=== PATIENT | female | born 1960 | race Caucasian/White ===

== ENCOUNTER 2019-01-11 12:52 | Emergency (ER) | payer SELFPAY ==
[~2019-01-11] VITALS: Ht 157.5 cm; Wt 56.8 kg
[~2019-01-11 12:52] MED LIST: CIPROFLOXACN500 MG PO; DOXYCYCL HYC100 MG OR; FLEXERIL PO; IMODIUM2 MG PO; MOTRIN200 MG PO; ZOFRAN4 MG/TAB PO
[2019-01-11 13:53] LABS: HEMATOCRIT 36.2 % (37.0-47.0); IMMATURE GRANULOCYTES 0.3 % (0.0-5.0); MEAN CELL VOLUME 83.8 fL CALC (80.0-100.0); MEAN CORPUSCULAR HGB 27.8 pG CALC (26.0-32.0); MEAN CORPUSCULAR HGB CONC 33.1 g/L CALC (32.0-36.0); NEUT# 4.34 thou/uL (2.00-7.15); RED BLOOD COUNT 4.32 mill/uL (4.20-5.60); RED CELL DISTRI WIDTH 13.3 % (11.5-15.5)
[2019-01-11 14:07] LABS: URINE BILIRUBIN - DIPSTICK NEGATIVE (NEGATIVE); URINE BLOOD DIPSTICK NEGATIVE (NEGATIVE); URINE COLOR YELLOW; URINE GLUCOSE - DIPSTICK NEGATIVE (NEGATIVE); URINE KETONE NEGATIVE (NEGATIVE); URINE LEUK ESTERASE TRACE (NEGATIVE); URINE NITRITE - DIPSTICK NEGATIVE (Negative); URINE PROTEIN - DIPSTICK NEGATIVE (NEG-TRACE); URINE SPECIFIC GRAVITY <=1.005; URINE UROBILINOGEN - DIPSTICK 0.2 E.U./dL (0.2)
[2019-01-11 14:08] LABS: ALBUMIN 4.5 g/dL (3.2-5.0); ALKALINE PHOSPHATASE 89 u/l (38-126); ANION GAP 16 (6-22 (CALC)); BILIRUBIN, TOTAL 0.4 mg/dL (0.0-1.4); BUN 10 mg/dL (7-17); BUN/CREATININE RATIO 15 (12-20 (CALC)); CARBON DIOXIDE 19 mmol/l (22-30); CHLORIDE 107 mmol/l (95-108); CREATININE 0.7 mg/dL (0.5-1.0); GFR > 60 ML/MIN (>=60 (CALC)); GFR FOR AFR.AMER. > 60 ML/MIN (>=60 (CALC)); LIPASE 119 u/l (23-300); POTASSIUM 3.7 mmol/l (3.5-5.1); SGOT/AST 31 u/l (14-36); SODIUM 138 mmol/l (137-146); TOTAL PROTEIN 7.8 g/dL (6.3-8.2)
[2019-01-11 14:20] LABS: BARBITURATES NEGATIVE (NEGATIVE); COCAINE NEGATIVE (NEGATIVE); METHADONE NEGATIVE (NEGATIVE); OXCYCODONE NEGATIVE (NEGATIVE); TETRAHYDROCANNABIONOL NEGATIVE (NEGATIVE); TRICYLIC ANTIDEPRESSANTS NEGATIVE (NEGATIVE)
[2019-01-11 16:58] VITALS: BP 148/99
== END 2019-01-11 17:01 | disposition short-term general hospital (02) | DRG 55 ==
LOC: ED 12:52
PROVIDERS: Emergency Medicine
DX: C79.31 Secondary malignant neoplasm of brain (principal); R91.8 Other nonspecific abnormal finding of lung field; R07.9 Chest pain, unspecified; R20.0 Anesthesia of skin; F17.200 Nicotine dependence, unspecified, uncomplicated
CPT/HCPCS: Q9967

== ENCOUNTER 2019-01-28 15:06 | Emergency (ER) | payer SELFPAY ==
[~2019-01-28] VITALS: Ht 157.5 cm; Wt 54.5 kg
[2019-01-28] MEDS ORDERED: ULTRAM50 MG PO (15:29)
[2019-01-28 15:47] LABS: HEMATOCRIT 37.5 % (37.0-47.0); HEMOGLOBIN 12.7 g/dl (12.0-16.0); IMMATURE GRANULOCYTES 2.5 % (0.0-5.0); MEAN CELL VOLUME 82.6 fL CALC (80.0-100.0); MEAN CORPUSCULAR HGB CONC 33.9 g/L CALC (32.0-36.0); NEUT# 14.78 thou/uL (2.00-7.15); RED BLOOD COUNT 4.54 mill/uL (4.20-5.60); RED CELL DISTRI WIDTH 15.4 % (11.5-15.5)
[2019-01-28 16:05] LABS: ALBUMIN 4.3 g/dL (3.2-5.0); ALKALINE PHOSPHATASE 88 u/l (38-126); BUN 18 mg/dL (7-17); BUN/CREATININE RATIO 27 (12-20 (CALC)); CARBON DIOXIDE 22 mmol/l (22-30); CREATININE 0.7 mg/dL (0.5-1.0); ETHYL ALCOHOL 55 mg/dl (0-30); GFR > 60 ML/MIN (>=60 (CALC)); GFR FOR AFR.AMER. > 60 ML/MIN (>=60 (CALC)); SGOT/AST 40 u/l (14-36); TOTAL PROTEIN 6.9 g/dL (6.3-8.2)
[2019-01-28 16:06] LABS: URINE BILIRUBIN - DIPSTICK NEGATIVE (NEGATIVE); URINE BLOOD DIPSTICK TRACE-INTACT (NEGATIVE); URINE COLOR YELLOW; URINE GLUCOSE - DIPSTICK NEGATIVE (NEGATIVE); URINE KETONE NEGATIVE (NEGATIVE); URINE LEUK ESTERASE TRACE (NEGATIVE); URINE NITRITE - DIPSTICK NEGATIVE (Negative); URINE PROTEIN - DIPSTICK NEGATIVE (NEG-TRACE); URINE SPECIFIC GRAVITY <=1.005; URINE UROBILINOGEN - DIPSTICK 0.2 E.U./dL (0.2)
[2019-01-28 16:09] LABS: BARBITURATES NEGATIVE (NEGATIVE); COCAINE NEGATIVE (NEGATIVE); METHADONE NEGATIVE (NEGATIVE); OXCYCODONE NEGATIVE (NEGATIVE); TETRAHYDROCANNABIONOL NEGATIVE (NEGATIVE); TRICYLIC ANTIDEPRESSANTS NEGATIVE (NEGATIVE)
[2019-01-28 16:14] LABS: ANION GAP 21 (6-22 (CALC)); BILIRUBIN, TOTAL 0.6 mg/dL (0.0-1.4); CHLORIDE 92 mmol/l (95-108); SODIUM 131 mmol/l (137-146)
[2019-01-28 16:17] LABS: MYOGLOBIN 120 ng/mL (0 - 62)
[2019-01-28 17:34] VITALS: BP 174/104
== END 2019-01-28 17:27 | disposition left against medical advice (07) | DRG 303 ==
LOC: ED 15:06
PROVIDERS: Emergency Medicine
DX: R93.89 Abnormal findings on diagnostic imaging of other specified body structures (principal); C34.90 Malignant neoplasm of unspecified part of unspecified bronchus or lung; C79.51 Secondary malignant neoplasm of bone; R51 Headache; R20.0 Anesthesia of skin; Z91.19 Patient's noncompliance with other medical treatment and regimen

== ENCOUNTER 2019-02-01 16:46 | Emergency (ER) | payer SELFPAY ==
[~2019-02-01] VITALS: Ht 157.5 cm; Wt 75.0 kg
[2019-02-01 16:46] VITALS: BP 144/99
[~2019-02-01 16:46] MED LIST changes: +ULTRAM50 MG PO
[2019-02-01 17:33] LABS: URINE BILIRUBIN - DIPSTICK NEGATIVE (NEGATIVE); URINE BLOOD DIPSTICK TRACE-INTACT (NEGATIVE); URINE COLOR YELLOW; URINE GLUCOSE - DIPSTICK NEGATIVE (NEGATIVE); URINE KETONE NEGATIVE (NEGATIVE); URINE NITRITE - DIPSTICK NEGATIVE (Negative); URINE PROTEIN - DIPSTICK NEGATIVE (NEG-TRACE); URINE SPECIFIC GRAVITY <=1.005; URINE UROBILINOGEN - DIPSTICK 0.2 E.U./dL (0.2)
[2019-02-01 17:33] LABS: HEMATOCRIT 32.7 % (37.0-47.0); HEMOGLOBIN 11.3 g/dl (12.0-16.0); IMMATURE GRANULOCYTES 3.4 % (0.0-5.0); MEAN CELL VOLUME 82.2 fL CALC (80.0-100.0); MEAN CORPUSCULAR HGB 28.4 pG CALC (26.0-32.0); MEAN CORPUSCULAR HGB CONC 34.6 g/L CALC (32.0-36.0); NEUT# 12.33 thou/uL (2.00-7.15); RED BLOOD COUNT 3.98 mill/uL (4.20-5.60); RED CELL DISTRI WIDTH 15.2 % (11.5-15.5)
[2019-02-01 17:36] LABS: URINE LEUK ESTERASE MODERATE (NEGATIVE)
[2019-02-01 17:37] LABS: BARBITURATES NEGATIVE (NEGATIVE); COCAINE NEGATIVE (NEGATIVE); METHADONE NEGATIVE (NEGATIVE); OXCYCODONE NEGATIVE (NEGATIVE); TETRAHYDROCANNABIONOL NEGATIVE (NEGATIVE); TRICYLIC ANTIDEPRESSANTS NEGATIVE (NEGATIVE)
[2019-02-01 17:50] LABS: ALKALINE PHOSPHATASE 86 u/l (38-126); BILIRUBIN, TOTAL 0.7 mg/dL (0.0-1.4); BUN 13 mg/dL (7-17); BUN/CREATININE RATIO 22 (12-20 (CALC)); CARBON DIOXIDE 25 mmol/l (22-30); CHLORIDE 85 mmol/l (95-108); CREATININE 0.6 mg/dL (0.5-1.0); ETHYL ALCOHOL 101 mg/dl (0-30); GFR > 60 ML/MIN (>=60 (CALC)); GFR FOR AFR.AMER. > 60 ML/MIN (>=60 (CALC)); POTASSIUM 3.9 mmol/l (3.5-5.1); SGOT/AST 48 u/l (14-36); TOTAL PROTEIN 5.6 g/dL (6.3-8.2)
[2019-02-01 17:51] LABS: ALBUMIN 3.3 g/dL (3.2-5.0); ANION GAP 17 (6-22 (CALC)); SODIUM 123 mmol/l (137-146)
[2019-02-01 17:51] LABS: URINE BACTERIA MODERATE hpf; URINE RBC 0-2 RBC/hpf (0-5); URINE SQUAMOUS EPITHELIAL CELL FEW EPI/hpf (0-FEW)
== END 2019-02-01 19:33 | disposition short-term general hospital (02) | DRG 55 ==
LOC: ED 16:46
PROVIDERS: Emergency Medicine
DX: D49.6 Neoplasm of unspecified behavior of brain (principal); E87.1 Hypo-osmolality and hyponatremia; N39.0 Urinary tract infection, site not specified; C79.9 Secondary malignant neoplasm of unspecified site; T14.8XXA Other injury of unspecified body region, initial encounter; F17.200 Nicotine dependence, unspecified, uncomplicated; B96.20 Unspecified Escherichia coli [E. coli] as the cause of diseases classified elsewhere; S80.12XA Contusion of left lower leg, initial encounter; W19.XXXA Unspecified fall, initial encounter

== ENCOUNTER 2019-03-15 15:31 | Emergency (ER) | payer OTHER ==
[~2019-03-15] VITALS: Ht 157.5 cm; Wt 70.0 kg
[2019-03-15 16:13] LABS: HEMATOCRIT 37.9 % (37.0-47.0); HEMOGLOBIN 12.3 g/dl (12.0-16.0); IMMATURE GRANULOCYTES 0.3 % (0.0-5.0); MEAN CELL VOLUME 85.2 fL CALC (80.0-100.0); MEAN CORPUSCULAR HGB 27.6 pG CALC (26.0-32.0); MEAN CORPUSCULAR HGB CONC 32.5 g/L CALC (32.0-36.0); NEUT# 6.09 thou/uL (2.00-7.15); RED BLOOD COUNT 4.45 mill/uL (4.20-5.60); RED CELL DISTRI WIDTH 15.1 % (11.5-15.5)
[2019-03-15 16:29] LABS: BUN 6 mg/dL (7-17); BUN/CREATININE RATIO 8 (12-20 (CALC)); CARBON DIOXIDE 25 mmol/l (22-30); CREATININE 0.7 mg/dL (0.5-1.0); GFR > 60 ML/MIN (>=60 (CALC)); GFR FOR AFR.AMER. > 60 ML/MIN (>=60 (CALC)); POTASSIUM 3.8 mmol/l (3.5-5.1)
[2019-03-15 16:31] LABS: ANION GAP 16 (6-22 (CALC)); CHLORIDE 103 mmol/l (95-108); SODIUM 140 mmol/l (137-146)
[2019-03-15 17:43] VITALS: BP 135/89
== END 2019-03-15 18:56 | disposition home or self-care (01) ==
LOC: ED 15:31
PROVIDERS: Family Medicine
DX: Z04.3 Encounter for examination and observation following other accident (principal); R07.9 Chest pain, unspecified; G81.94 Hemiplegia, unspecified affecting left nondominant side; D49.6 Neoplasm of unspecified behavior of brain; F17.200 Nicotine dependence, unspecified, uncomplicated

== ENCOUNTER 2019-04-22 11:00 | Inpatient (IN) | payer OTHER ==
[~2019-04-22] VITALS: Ht 157.5 cm; Wt 61.0 kg
[2019-04-22] VITALS (8 sets, daily range): BP systolic 98–135; BP diastolic 60–92
[2019-04-22 11:54] LABS: HEMATOCRIT 38.4 % (37.0-47.0); HEMOGLOBIN 12.6 g/dl (12.0-16.0); MEAN CELL VOLUME 83.3 fL CALC (80.0-100.0); MEAN CORPUSCULAR HGB 27.3 pG CALC (26.0-32.0); MEAN CORPUSCULAR HGB CONC 32.8 g/L CALC (32.0-36.0); NEUT# 7.23 thou/uL (2.00-7.15); RED BLOOD COUNT 4.61 mill/uL (4.20-5.60)
[2019-04-22 13:09] LABS: ALBUMIN 3.1 g/dL (3.2-5.0); BILIRUBIN, TOTAL 0.7 mg/dL (0.0-1.4); BUN 16 mg/dL (7-17); BUN/CREATININE RATIO 14 (12-20 (CALC)); CARBON DIOXIDE 25 mmol/l (22-30); CHLORIDE 91 mmol/l (95-108); CREATININE 1.1 mg/dL (0.5-1.0); GFR 51 ML/MIN (>=60 (CALC)); GFR FOR AFR.AMER. > 60 ML/MIN (>=60 (CALC)); POTASSIUM 4.4 mmol/l (3.5-5.1); SGOT/AST 33 u/l (14-36); TOTAL PROTEIN 5.9 g/dL (6.3-8.2)
[2019-04-22 13:20] LABS: ANION GAP 16 (6-22 (CALC))
[2019-04-22 13:21] LABS: ALKALINE PHOSPHATASE 169 u/l (38-126); SODIUM 128 mmol/l (137-146)
[2019-04-22] MEDS ORDERED: MS CONTIN30 MG PO (14:24)
[2019-04-22] MEDS ORDERED: DECADRON2 MG PO (14:25)
[2019-04-22] MEDS ORDERED: GABAPENTIN100 MG PO (14:25)
[2019-04-22] MEDS ORDERED: OXYCODONE10 M1 PO (14:28)
[2019-04-22] MEDS ORDERED: NORVASC PO (14:28)
[2019-04-22] MEDS ORDERED: SENNA-TABS8.6 MG PO (14:28)
[2019-04-22] MEDS ORDERED: ZOFRAN4 MG/TAB PO (14:32)
[2019-04-22] MEDS ORDERED: ATIVAN1 MG PO (14:33)
[2019-04-22 15:12] LABS: URINE BILIRUBIN - DIPSTICK NEGATIVE (NEGATIVE); URINE BLOOD DIPSTICK LARGE (NEGATIVE); URINE COLOR YELLOW; URINE GLUCOSE - DIPSTICK NEGATIVE (NEGATIVE); URINE KETONE NEGATIVE (NEGATIVE); URINE LEUK ESTERASE TRACE (NEGATIVE); URINE PROTEIN - DIPSTICK NEGATIVE (NEG-TRACE); URINE UROBILINOGEN - DIPSTICK 0.2 E.U./dL (0.2)
[2019-04-22 15:20] LABS: URINE NITRITE - DIPSTICK POSITIVE (Negative)
[2019-04-22 15:35] LABS: URINE SQUAMOUS EPITHELIAL CELL FEW EPI/hpf (0-FEW)
[2019-04-23] VITALS (11 sets, daily range): BP systolic 110–150; BP diastolic 62–96
[2019-04-23 05:43] LABS: HEMATOCRIT 30.9 % (37.0-47.0); HEMOGLOBIN 10.2 g/dl (12.0-16.0); MEAN CELL VOLUME 82.6 fL CALC (80.0-100.0); MEAN CORPUSCULAR HGB 27.3 pG CALC (26.0-32.0); RED BLOOD COUNT 3.74 mill/uL (4.20-5.60); RED CELL DISTRI WIDTH 15.8 % (11.5-15.5)
[2019-04-23 06:03] LABS: ANION GAP 8 (6-22 (CALC)); BUN 14 mg/dL (7-17); BUN/CREATININE RATIO 25 (12-20 (CALC)); CARBON DIOXIDE 30 mmol/l (22-30); CHLORIDE 101 mmol/l (95-108); CREATININE 0.6 mg/dL (0.5-1.0); GFR > 60 ML/MIN (>=60 (CALC)); GFR FOR AFR.AMER. > 60 ML/MIN (>=60 (CALC)); POTASSIUM 3.8 mmol/l (3.5-5.1)
[2019-04-23 06:04] LABS: SODIUM 135 mmol/l (137-146)
[2019-04-23] MEDS ORDERED: MULTI VIT PO (16:36)
[2019-04-24] VITALS (12 sets, daily range): BP systolic 136–167; BP diastolic 89–105
[2019-04-25] VITALS (13 sets, daily range): BP systolic 127–159; BP diastolic 85–101
[2019-04-25 05:28] LABS: HEMATOCRIT 30.5 % (37.0-47.0); MEAN CELL VOLUME 82.4 fL CALC (80.0-100.0); MEAN CORPUSCULAR HGB CONC 32.8 g/L CALC (32.0-36.0); RED BLOOD COUNT 3.7 mill/uL (4.20-5.60); RED CELL DISTRI WIDTH 15.9 % (11.5-15.5)
[2019-04-25 05:38] LABS: ALKALINE PHOSPHATASE 145 u/l (38-126); ANION GAP 8 (6-22 (CALC)); BUN 11 mg/dL (7-17); BUN/CREATININE RATIO 24 (12-20 (CALC)); CARBON DIOXIDE 33 mmol/l (22-30); CHLORIDE 98 mmol/l (95-108); CREATININE 0.5 mg/dL (0.5-1.0); GFR > 60 ML/MIN (>=60 (CALC)); GFR FOR AFR.AMER. > 60 ML/MIN (>=60 (CALC)); POTASSIUM 3.4 mmol/l (3.5-5.1); SGOT/AST 24 u/l (14-36); SODIUM 136 mmol/l (137-146); TOTAL PROTEIN 5.1 g/dL (6.3-8.2)
[2019-04-25 05:41] LABS: ALBUMIN 2.4 g/dL (3.2-5.0); BILIRUBIN, TOTAL 0.4 mg/dL (0.0-1.4)
[2019-04-26] VITALS (11 sets, daily range): BP systolic 137–161; BP diastolic 79–104
[2019-04-26 04:41] LABS: HEMATOCRIT 30.4 % (37.0-47.0); HEMOGLOBIN 9.8 g/dl (12.0-16.0); MEAN CELL VOLUME 82.4 fL CALC (80.0-100.0); MEAN CORPUSCULAR HGB 26.6 pG CALC (26.0-32.0); MEAN CORPUSCULAR HGB CONC 32.2 g/L CALC (32.0-36.0); RED BLOOD COUNT 3.69 mill/uL (4.20-5.60); RED CELL DISTRI WIDTH 15.9 % (11.5-15.5)
[2019-04-26 05:18] LABS: ALBUMIN 2.5 g/dL (3.2-5.0); ALKALINE PHOSPHATASE 143 u/l (38-126); ANION GAP 10 (6-22 (CALC)); BILIRUBIN, TOTAL 0.4 mg/dL (0.0-1.4); BUN 15 mg/dL (7-17); BUN/CREATININE RATIO 25 (12-20 (CALC)); CARBON DIOXIDE 37 mmol/l (22-30); CHLORIDE 92 mmol/l (95-108); CREATININE 0.6 mg/dL (0.5-1.0); GFR > 60 ML/MIN (>=60 (CALC)); GFR FOR AFR.AMER. > 60 ML/MIN (>=60 (CALC)); POTASSIUM 2.8 mmol/l (3.5-5.1); SGOT/AST 25 u/l (14-36); SODIUM 137 mmol/l (137-146); TOTAL PROTEIN 5.2 g/dL (6.3-8.2)
[2019-04-27] VITALS (9 sets, daily range): BP systolic 122–168; BP diastolic 80–101
[2019-04-27] MEDS ORDERED: LASIX 40 MG TAB40 MG PO (08:16)
== END 2019-04-27 14:05 | disposition hospice, home (50) | DRG 871 ==
LOC: ED 11:00 → ED-I 13:36 → ED 13:54 → ICU 13:55
PROVIDERS: Family Medicine; Internal Medicine; ADMIT Internal Medicine; ATTEND Internal Medicine
PROC: 5A09357 Assistance with Respiratory Ventilation, Less than 24 Consecutive Hours, Continuous Positive Airway Pressure (ICD-10-PCS; principal; 2019-04-22)
PROC: 06HM33Z Insertion of Infusion Device into Right Femoral Vein, Percutaneous Approach (ICD-10-PCS; 2019-04-22)
DX: A41.52 Sepsis due to Pseudomonas (principal); J18.9 Pneumonia, unspecified organism; J96.01 Acute respiratory failure with hypoxia; G93.41 Metabolic encephalopathy; C34.90 Malignant neoplasm of unspecified part of unspecified bronchus or lung; C71.9 Malignant neoplasm of brain, unspecified; J44.1 Chronic obstructive pulmonary disease with (acute) exacerbation; J44.0 Chronic obstructive pulmonary disease with (acute) lower respiratory infection; N39.0 Urinary tract infection, site not specified; I95.9 Hypotension, unspecified; R65.20 Severe sepsis without septic shock; G89.3 Neoplasm related pain (acute) (chronic); F17.200 Nicotine dependence, unspecified, uncomplicated; B96.20 Unspecified Escherichia coli [E. coli] as the cause of diseases classified elsewhere; Z51.5 Encounter for palliative care
CPT/HCPCS: J3475

== ENCOUNTER 2019-05-15 08:07 | Inpatient (IN) | payer OTHER ==
[~2019-05-15] VITALS: Ht 157.5 cm; Wt 50.4 kg
[~2019-05-15 08:07] MED LIST changes: +ATIVAN1 MG PO; +DECADRON2 MG PO; +LASIX 40 MG TAB40 MG PO; +MS CONTIN30 MG PO; +MULTI VIT PO; +NEURONTIN300 MG PO; +NORVASC PO; +OXYCODONE10 M1 PO; +SENNA-TABS8.6 MG PO
--- NOTE | 2019-05-15 08:07 | NUR ---
PT TO ROOM 14 VIA EMS
--- NOTE | 2019-05-15 08:15 | NUR ---
PT ALERT BUT APPEARS DISORIENTED, ANSWERS MOST QUESTIONS APPORPRIATLEY BUT OCCASIONALL THE RESPONSE DOES NOT MAKE SENSE TO SITUATION OR QUESTION ASKED, PT LIVES AT HOME WITH SIGN OTHER AND IS CURRENTLY UNDER HOSPICE CARE FOR LUNG CA WITH BONE AND BRAIN METS. VS STABLE PT AFEBRILE AND STATES SHE IS NOT SURE WHY SHE IS HERE, PER EMS HER S.O. CALLED FOR DIFFICULTY AROUSING THIS AM AND GENERALIZED WEAKNESS WORSE THAN BASELINE FOR PT. S.O. OTHE4R RIDES A BIKE AND IS ENROUTE TO HOSPITAL.
[2019-05-15 08:42] LABS: HEMATOCRIT 35.4 % (37.0-47.0); HEMOGLOBIN 11.5 g/dl (12.0-16.0); IMMATURE GRANULOCYTES 4.7 % (0.0-5.0); MEAN CELL VOLUME 81.9 fL CALC (80.0-100.0); MEAN CORPUSCULAR HGB 26.6 pG CALC (26.0-32.0); MEAN CORPUSCULAR HGB CONC 32.5 g/L CALC (32.0-36.0); NEUT# 10.81 thou/uL (2.00-7.15); RED BLOOD COUNT 4.32 mill/uL (4.20-5.60); RED CELL DISTRI WIDTH 17.2 % (11.5-15.5)
[2019-05-15 08:59] LABS: BUN 25 mg/dL (7-17); BUN/CREATININE RATIO 28 (12-20 (CALC)); CARBON DIOXIDE 31 mmol/l (22-30); CHLORIDE 101 mmol/l (95-108); CREATININE 0.9 mg/dL (0.5-1.0); GFR > 60 ML/MIN (>=60 (CALC)); GFR FOR AFR.AMER. > 60 ML/MIN (>=60 (CALC)); SODIUM 137 mmol/l (137-146)
[2019-05-15 09:27] LABS: URINE BILIRUBIN - DIPSTICK NEGATIVE (NEGATIVE); URINE BLOOD DIPSTICK LARGE (NEGATIVE); URINE GLUCOSE - DIPSTICK 100 mg/dL (NEGATIVE); URINE KETONE 15 mg/dL (NEGATIVE); URINE PROTEIN - DIPSTICK >=300 mg/dL (NEG-TRACE)
[2019-05-15 09:27] LABS: ANION GAP 9 (6-22 (CALC)); POTASSIUM 3.9 mmol/l (3.5-5.1)
[2019-05-15 09:29] LABS: URINE COLOR RED; URINE LEUK ESTERASE SMALL (NEGATIVE); URINE NITRITE - DIPSTICK POSITIVE (Negative)
--- NOTE | 2019-05-15 09:29 | NUR ---
PT RESTING ON STRETCHER, NO COMPLAINTS PROVIDED, PO FLUIDS GIVEN AND S.O. AT BEDSIDE CALL LAUREN WITHIN REACH
[2019-05-15 09:30] LABS: URINE BACTERIA FEW hpf; URINE EPITHELIAL CELLS MODERATE EPI/hpf (0-FEW); URINE RBC >100 RBC/hpf (0-5)
--- NOTE | 2019-05-15 09:37 | NUR ---
PT RESTING ON STRETCHER, NO S/S OF DISTRESS OR DISCOMFORT NOTED, CALL LAUREN WITHIN REACH.
[2019-05-15 09:43] LABS: TOTAL PROTEIN 6.1 g/dL (6.3-8.2)
[2019-05-15 09:51] LABS: ALBUMIN 3.3 g/dL (3.2-5.0); BILIRUBIN, TOTAL 0.6 mg/dL (0.0-1.4)
--- NOTE | 2019-05-15 10:23 | NUR ---
SIGNIFICANT OTHER TO TAKER CLOTHES, POCKETBOOK AND HOME MEDICATIONS HOME WITH HIM, BOTH PT AND S.O. AWARE OF PLANNED ADMISSION
--- NOTE | 2019-05-15 10:27 | NUR ---
PT INSTRUCTED ON SINA CARE PRIOR TO URINE COLLECTION, SUPPLIES PROVIDED AND PT AMBULATED TO BATHROOM WITH STEADY GAIT.
--- NOTE | 2019-05-15 10:33 | NUR ---
report called to tila wilcox on med surg room 281 assigned, pt aware of planned admission and s.o. aware of room assignment prior to leaving
--- NOTE | 2019-05-15 11:30 | NUR ---
PT TRANSPORTED TO MED SURG VIA STRETCHER ON TELE, NURSE CIERRA AND EFFIE ALBARRAN AT BEDSIDE ON ARRIVAL.
[2019-05-15 11:42] VITALS: BP 158/111
--- NOTE | 2019-05-15 12:00 | NUR ---
PT ARRIVES TO ROOM VIA STRETCHER FROM ER. SHE IS AWAKE, ALERT, BUT CONFUSED. SHE HAS WORD FINDING DIFFICULTY, SAYING WRONG WORD AT TIMES. SHE REPEATS HERSELF FREQUENTLY. LEFT SIDE IS WEAK, PT UNABLE TO WALK.
[2019-05-15 14:56] VITALS: BP 138/97
--- NOTE | 2019-05-15 16:53 | NUR ---
PT SEEN TO HAVE STAGE II DECUBITIS ON COCCYX. PICTURE TAKEN, IN CHART. PT HERSELF REMAINS CONFUSED AT TIMES, IN NEED OF REORIENTATION.
[2019-05-15 19:25] VITALS: BP 106/82
--- NOTE | 2019-05-15 20:55 | NUR ---
ASSESSMENT COMPLETED; IV SITE PATENT AND INFUSING ORDERED IVF WELL. SNACK AND SCHED MEDS PROVIDED. PT. IS A/A/O WITH DELAYED REPONSES TO QUESTIONS AND DOES NOT KNOW THE MONTH BUT PROVIDED THE ACCURATE YEAR. AQUACEL FAOM DRESSING IN PLACE TO BUTTOCKS AND UNABLE TO ASSESS WOUND AT THIS TIME; PHOTO IS IN CHART FROM PREVIOUS SHIFT. UPDATED ON POC; BED ALARM IS SET FOR SAFETY PRECAUTIONS. PT. ENCOURAGED TO CALL FOR ANY NEEDS. CALL LIGHT IS IN REACH. WILL CONTINUE TO MONITOR.
--- NOTE | 2019-05-15 22:41 | NUR ---
RESTING IN BED WITH EYES CLOSED; RESP. EVEN AND UNLABORED. CALL LIGHT IS IN REACH. WILL CONTINUE TO MONITOR.
[2019-05-15 23:52] VITALS: BP 120/84
--- NOTE | 2019-05-16 00:05 | NUR ---
PT. CLEANED OF A MODERATE INCONTINENCE OF BLOODY URINE; NEW PURE WIC APPLIED AND NEW PADS. REPOSITIONED ONTO RIGHT SIDE. C/O LEFT SIDED PAIN AND MEDICATED WITH ORDERED PRN ROXICODONE; WILL REASSESS. PO FLUIDS OFFERED. CALL LIGHT IS IN REACH. WILL CONTINUE TO MONITOR.
--- NOTE | 2019-05-16 02:14 | NUR ---
CALLED PT'S HR WS ELEVATED IN THE 130'S. PT. EATING PASTRIES IN BED AND SIPPING ON COLA. PT. IS NOTED TO BE SLIGHTLY ANXIOUS, REMOVED CAFFEINATED BEVARAGE AND GIVEN DECAF COFFEE;APICAL PULSE 124 ;MEDICATED WITH ORDERED PRN ATIVAN; WILL REASSESS.
[2019-05-16 03:50] VITALS: BP 108/83
--- NOTE | 2019-05-16 04:30 | NUR ---
PT. CLEANED OF A MODERATE INCONTINENCE OF BLOODY URINE; SINA CARE GIVEN AND NEW PAD AND DRAW SHEET APPLIED; GOWN CHANGED. REPOSITIONED AND PULLED UP IN BED. PURE WIC CHANGED ;DENIES NEEDS/PAIN. IV SITE PATENT AND INFUSING ORDERED IVF WELL. BED ALARM ON. CALL LIGHT IS IN REACH.
[2019-05-16 05:37] LABS: HEMATOCRIT 33.1 % (37.0-47.0); HEMOGLOBIN 10.8 g/dl (12.0-16.0); MEAN CELL VOLUME 81.5 fL CALC (80.0-100.0); MEAN CORPUSCULAR HGB 26.6 pG CALC (26.0-32.0); MEAN CORPUSCULAR HGB CONC 32.6 g/L CALC (32.0-36.0); RED BLOOD COUNT 4.06 mill/uL (4.20-5.60); RED CELL DISTRI WIDTH 16.8 % (11.5-15.5)
[2019-05-16 05:58] LABS: ANION GAP 9 (6-22 (CALC)); BUN 18 mg/dL (7-17); BUN/CREATININE RATIO 23 (12-20 (CALC)); CARBON DIOXIDE 26 mmol/l (22-30); CHLORIDE 105 mmol/l (95-108); CREATININE 0.8 mg/dL (0.5-1.0); GFR > 60 ML/MIN (>=60 (CALC)); GFR FOR AFR.AMER. > 60 ML/MIN (>=60 (CALC)); POTASSIUM 3.2 mmol/l (3.5-5.1); SODIUM 137 mmol/l (137-146)
--- NOTE | 2019-05-16 05:58 | NUR ---
CHECKED FOR INCONTINENCE AND NONE NOTED AT THIS TIME. PURE WIC IN PLACE. REPORTS SHE IS COMFORTABLE THE WAY SHE IS LYING IN BED AND DOES NOT WANT TO TURN AT THIS TIME. CALL LIGHT IS IN REACH. WILL CONITNUE TO MONITOR.
--- NOTE | 2019-05-16 07:00 | NUR ---
SHIFT CHANGE REPORT, PT AWAKE ALERT AND ORIENTED BUT INCONSISTANT WITH INFORMATION OR DOES NOT REMEMBER, REPEATS HERSELF AT TIMES, C/O PAIN TO RIGHT SIDE, ISSUE ADDRESSED, PURWICK IN PLACE TO CONTINUPUS SUCTIONING WITH BLOODY DRAINAG, IVF INFUSING, CALL LAUREN IN REACH.
[2019-05-16 08:34] VITALS: BP 115/84
[2019-05-16 11:05] VITALS: BP 164/111
--- NOTE | 2019-05-16 12:00 | NUR ---
HEALTHCARE ADMINISTRATOR (RIN) VISITED WITH PTMD UPDATED ON PLAN OF CARE.
--- NOTE | 2019-05-16 13:30 | NUR ---
DR TRINIDAD ROUNDED AND DISCUSSED PLAN OF CARE, PT STATED UNDERSTANDING. PERALTA CATHETER PLACED THIS AM, DARK BLOODY URINE DRAINING TO COLLECTION BAG SINCE CATHETER PLACED, MEDICAL STAFF AWARE.
[2019-05-16 14:30] VITALS: BP 135/95
--- NOTE | 2019-05-16 15:03 | NUR ---
SITTING IN HIGH FOWLERS POSITION IN BED, REQUESTING TO TURN OFF TV AND TURNED IT OFF BY HERSELF BUT CONTINUES TO PRESS NURSE BUTTON ASKING TO TURN OFF TV, REORIENTED TO TV BUTTON BUT STILL ASKING TO TURN OFF TV, WHEN ASKED WHETHER SHE WANTED IT ON OR OFF SHE ASKED TO TURN IT ON. WILL CONTINUE TO MONITOR AND ADDRESS CONCERNS.
[2019-05-16 19:20] VITALS: BP 125/92
--- NOTE | 2019-05-16 19:40 | NUR ---
ASSESSMENT COMPLETED. IV SITE PATENT AND SL; NO DISTRESS NOTED; BED ALARM ON FOR PT. SAFTEY. PO FLUIDS OFFERED. PERALTA CATHETER INTACT AND DRAINING BLOODY URINE AT GRAVITY LEVEL. INSTRUCTED TO CALL FOR ALL NEEDS; WILL CONTINUE TO MONITOR.
--- NOTE | 2019-05-16 20:54 | NUR ---
C/O GENERALIZED PAIN TO LEFT SIDE AND MEDICATED WITH ORDERED/SCHEDULED MORPHINE; WILL REASSESS. PO FLUIDS GIVEN. REPOSITIONED AND CHANGED CHUCKS UNDERNEATH PT. ENCOURAGED TO CALL FOR ANY NEEDS. CALL LIGHT IS IN REACH. WILL CONTINUE TO MONITOR. BED ALARM ON.
[2019-05-16 23:01] VITALS: BP 129/92
--- NOTE | 2019-05-16 23:05 | NUR ---
REPOSITIONED ONTO RIGHT SIDE. PERALTA CATHTER REMAINS DRAINING BLOODY URINE SCANT AMOUNT OF SMALL CLOTS NOTED WHILE DRAINING BAG WELL. WILL CONTINUE TO MONITOR. DENIES NEEDS/PAIN. CALL LIGHT IS IN REACH. BED ALARM ON.
--- NOTE | 2019-05-16 23:45 | NUR ---
PT. C/O GENERALIZED PAIN AND IS VERY ANXIOUS AND REPORTS SHE IS READY TO GO HOME.MEDICATED WITH ORDERED PRN ROXICODONE AND ATIVAN PER ORDER. PT. IS EDUCATED ON DX AND LABS PENDING FOR AM ALONG WITH HEMATURIA NEEDING TO BE MONITORED.PT. IS IN AGREEMENT FOR STAYING THE NIGHT AT HOSPITAL AND AWAITING MD IN AM. ENCOURAGED TO CALL FOR ANY NEEDS. CALL LIGHT IS IN REACH.
--- NOTE | 2019-05-17 02:04 | NUR ---
resting in bed with eyes closed; resp. even and unlabored. bed alarm on and call light is in reach.
[2019-05-17 04:02] VITALS: BP 118/86
--- NOTE | 2019-05-17 04:11 | NUR ---
VS OBTAINED. NO DISTRESS NOTED; DENIES NEEDS. PT. REPORTS SHE IS COMFORTABLE AND DOES NOT WANT TO BE REPOSITIONED AT THIS TIME. ENCOURGAED TO CALL FOR ANY NEEDS. CALL LIGHT IS IN REACH.
[2019-05-17 05:18] LABS: HEMATOCRIT 31.7 % (37.0-47.0); HEMOGLOBIN 10.2 g/dl (12.0-16.0); IMMATURE GRANULOCYTES 5.7 % (0.0-5.0); MEAN CELL VOLUME 81.7 fL CALC (80.0-100.0); MEAN CORPUSCULAR HGB 26.3 pG CALC (26.0-32.0); MEAN CORPUSCULAR HGB CONC 32.2 g/L CALC (32.0-36.0); NEUT# 10.99 thou/uL (2.00-7.15); RED BLOOD COUNT 3.88 mill/uL (4.20-5.60); RED CELL DISTRI WIDTH 16.6 % (11.5-15.5)
[2019-05-17 05:27] LABS: BUN 15 mg/dL (7-17); BUN/CREATININE RATIO 21 (12-20 (CALC)); CARBON DIOXIDE 29 mmol/l (22-30); CHLORIDE 103 mmol/l (95-108); CREATININE 0.7 mg/dL (0.5-1.0); GFR > 60 ML/MIN (>=60 (CALC)); GFR FOR AFR.AMER. > 60 ML/MIN (>=60 (CALC)); SODIUM 137 mmol/l (137-146)
[2019-05-17 05:29] LABS: ANION GAP 9 (6-22 (CALC)); POTASSIUM 3.9 mmol/l (3.5-5.1)
--- NOTE | 2019-05-17 05:33 | NUR ---
PT. REPOSITIONED AT THIS TIME INTO HIGH FOWLERS PT. REQUESTS. DRESSING TO BUTTOCKS REMAINS CDI.
--- NOTE | 2019-05-17 06:55 | NUR ---
PT REPORT RECIEVED FROM JIMMY LYNCH. PT RESTING. NO S/S OF DISTRESS. CALL LIGHT IN REACH. WILL CONTINUE TO MONITOR.
[2019-05-17 07:12] VITALS: BP 122/93
--- NOTE | 2019-05-17 07:21 | NUR ---
PT A/O. RESP EVEN AND UNLABORED. LUNGS CLEAR. TELE IN PLACE. BOWEL SOUNDS ACTIVE X4. STRONG RADIAL, WEAK PEDAL PULSES. #22 LFA SL. FLUSHED AND PATENT; SITE APPEARS HEALTHY. PERALTA IN PLACE; BLOODY URINE NOTED. PT HAS AQAUCEL TO BUTTOCK; CDI. PT C/O RT SIDE PAIN, REPOSITIONED FOR COMFORT; MEDICATION ADMINISTRATION DISCUSSED W/ PT. PT STATES UNDERSTANDING. POC DISCUSSED. SAFETY PRECAUTIONS IN PLACE. CALL LIGHT IN REACH. WILL CONTINUE TO MONITOR.
--- NOTE | 2019-05-17 08:01 | NUR ---
CRANE FOLLOWER STATES PT READING ST IN 120S ON TELEMTRY. PT SITTING IN BED EATING BREAKFAST AND TALKING W/ FAMILY. NO S/S OF DISTRESS. WILL CONTINUE TO MONITOR.
[2019-05-17 11:30] VITALS: BP 128/87
--- NOTE | 2019-05-17 12:15 | NUR ---
PT EATING LUNCH. NO C/O PAIN OR NEEDS. PERALTA DRAINING. CALL LIGHT IN REACH. WILL CONTINUE TO MONITOR.
[2019-05-17 14:40] VITALS: BP 112/76
--- NOTE | 2019-05-17 16:02 | NUR ---
PT SLEEPING. NO C/O PAIN OR NEEDS. CALL LIGHT IN REACH. WILL CONTINUE TO MONITOR.
[2019-05-17 19:20] VITALS: BP 129/91
--- NOTE | 2019-05-17 20:00 | NUR ---
PATIENT RESTING IN BED AT THIS TIMEWITH HOB ELEVATED. AWAKE AND ALERT-TELE MONITOR IN PLACE. PERALTA CATH PATENT AND DRAINING BLOOD TINGED URINE. AQUACEL FOAM DRESSING INTACT TO BUTTOCKS. SALINE LOCK INTACT TO LEFT FOREARM. SAFETY PRECAUTIONS REINFORCED. CALL LIGHT IN REACH. WILL CONT TO MONITOR.
[2019-05-17 23:20] VITALS: BP 129/89
--- NOTE | 2019-05-17 23:54 | NUR ---
PATIENT RESTING IN BED-MEDICATED FOR PAIN-6/10 ON PAIN SCALE WITH ROXICODONE 10MG PO FOR PAIN. MEDICATED WITH ATIVAN 0.5MG PO FOR SLEEP. PATIENT WITH WORD FINDING DIFFICULTY AND HESITATION WELL BEING FORGETFUL PATIENT WITH LEFT SIDED WEAKNESS. PERALTA CONT TO DRAIN BLOODY URINE. SAFETY PRECAUTIONS REINFORCED. CALL LIGHT IN REACH. WILL CONT TO MONITOR.
[2019-05-18] VITALS (7 sets, daily range): BP systolic 104–124; BP diastolic 78–89
--- NOTE | 2019-05-18 02:30 | NUR ---
PATIENT RESTING IN BED-APPEARS SLEEPING AT THIS TIME. RESP ARE EVEN AND INLABORED. PERALTA CATH CONT TO DRAIN BLOODY URINE. TELE MONITOR IN PLACE. CALL LIGHT IN REACH. WILL CONT TO MONITOR.
--- NOTE | 2019-05-18 04:34 | NUR ---
APPEARS SLEEPING AT THIS TIME WITH EYES CLOSED. HOB SLIGHTLY ELEVATED. TELE MONITOR IN PLACE. PERALTA CONT TO DRAIN BLOODY URINE. TELE MONITOR IN PLACE. CALL LIGHT IN REACH. WILL CONT TO MONITOR.
[2019-05-18 04:55] LABS: HEMOGLOBIN 9.5 g/dl (12.0-16.0); MEAN CELL VOLUME 81.2 fL CALC (80.0-100.0); MEAN CORPUSCULAR HGB 26.6 pG CALC (26.0-32.0); MEAN CORPUSCULAR HGB CONC 32.8 g/L CALC (32.0-36.0); RED BLOOD COUNT 3.57 mill/uL (4.20-5.60); RED CELL DISTRI WIDTH 16.7 % (11.5-15.5)
[2019-05-18 05:11] LABS: ANION GAP 11 (6-22 (CALC)); BUN 19 mg/dL (7-17); BUN/CREATININE RATIO 22 (12-20 (CALC)); CARBON DIOXIDE 28 mmol/l (22-30); CHLORIDE 102 mmol/l (95-108); CREATININE 0.8 mg/dL (0.5-1.0); GFR > 60 ML/MIN (>=60 (CALC)); GFR FOR AFR.AMER. > 60 ML/MIN (>=60 (CALC)); POTASSIUM 3.8 mmol/l (3.5-5.1); SODIUM 136 mmol/l (137-146)
--- NOTE | 2019-05-18 06:55 | NUR ---
PT REPORT RECIEVED FROM JIMMY PETIT. PT SLEEPING. NO S/S OF DISTRESS. CALL LIGHT IN REACH. WILL CONTINUE TO MONITOR.
--- NOTE | 2019-05-18 07:17 | NUR ---
PT A/O W/ FORGETFULNESS. RESP EVEN AND UNLABORED. LUNG CLEAR. TELE IN PLACE. BOWEL SOUNDS ACTIVE X4. STRONG RADIAL, WEAK PEDAL PULSES. #22 LFA SL. FLUSHED AND PATENT. SITE APPEARS HEALTHY. DRESSING TO BUTTOCK; CDI. PERALTA IN PLACE; DRAINING BLOODY URINE. PT DENIES ANY PAIN OR NEEDS. POC DISCUSSED. SAFETY PRECAUTIONS IN PLACE. CALL LIGHT IN REACH. WILL CONTINUE TO MONITOR.
--- NOTE | 2019-05-18 09:01 | NUR ---
Confirmed with Manuel, microbiologist, that Pseudomonas in sputum culture is resistant to piperacillin/tazobactam.
--- NOTE | 2019-05-18 10:31 | NUR ---
called dr. friedman office regarding consultation. spoke to jonathan gave pt information and gave phone to nurse to speak to 's staff regarding questions of the pt. call back number for office is [phone].
--- NOTE | 2019-05-18 12:47 | NUR ---
PT EATING LUNCH. NO C/O PAIN OR NEEDS. CALL LIGHT IN REACH. WILL CONTINUE TO MONITOR.
--- NOTE | 2019-05-18 12:50 | NUR ---
PERALTA REMOVED PER DR. SANABRIA. MARCO ANTONIORN INSERTED [address] WAY PERALTA @1310. PT TOLERATED WELL. RED URINE NOTED. NO CLOTS VISIBLE. CBI RUNNING. LEG STRAP IN PLACE. WILL CONTINUE TO MONITOR.
--- NOTE | 2019-05-18 15:05 | NUR ---
pt hr up to 130. md made aware. per md; monitor for now. will continue to monitor.
--- NOTE | 2019-05-18 15:54 | NUR ---
PT WATCHING TELEVISION. NO C/O PAIN OR NEEDS. CBI RUNNING; URINE RED IN COLOR, NO CLOTS NOTED. CALL LIGHT IN REACH. WILL CONTINUE TO MONITOR.
--- NOTE | 2019-05-18 19:30 | NUR ---
PATIENT RESTING IN BED WITH HOB ELEVATED. PATIENT IS DROWSY-TELE MONITOR IN PLACE. SALINE LOCK TO LEFT FOREARM SITE INTACT. CBI IN PROGRESS DRAINING CRANBERRY AT THIS ITME-NO CLOTS NOTED. AQUACEL DRESSING INTACT TO BUTTACKS. CALL LIGHT IN REACH. WILL CONT TO MONITOR. CALL LIGHT IN REACH. WILL CONT TO MONITOR.
--- NOTE | 2019-05-18 22:22 | NUR ---
PATIENT RESTING IN BED WITH HOB ELEVATED AND EYES CLOSED. TELE MONITOR IN PLACE. CBI CONT ORDERED-SR COLORED URINE AT THIS TIME WITH NO CLOTS NOTED. CALL LIGHT IN REACH. WILL CONT TO MONITOR.
--- NOTE | 2019-05-19 00:12 | NUR ---
PATIENT RESTING IN BED-EYES CLOSED. RESPS ARE EVEN AND UNLABORED AT THIS TIME. TELE MONITOR IN PLACE. CBI CONT WITH SR COLORED URINE. CALL LIGHT IN REACH. WILL CONT TO MONITOR.
--- NOTE | 2019-05-19 02:32 | NUR ---
PATIENT RESTING IN BED-A LITTLE MORE ALERT AT THIS TIME-ASKING FOR COFFEE. CBI CONT RUNNING DRAINING CRANBERRY URINE. MERRUM INFUSING ORDERED VIA LEFT FOREARM SITE. SAFETY PRECAUTIONS REINFORCED. CALL LIGHT IN REACH. WILL CONT TO MONITOR.
--- NOTE | 2019-05-19 03:04 | NUR ---
PATIENT TRYING TO GET OO-STATES THAT SHE HAS TO "PEE"-ATTEMPT TO REORIENT PATIENT THAT SHE HAS PERALTA CATH WITH CBI RUNNING. PATIENT C/O PAIN-03/20-MEDICATED WITH ROXICODONE 10MG PO AND WITH ATIVAN 0.5MG PO FOR ANXIETY. SAFETY PRECAUTIONS REINFORCED. CALL LIGHT IN REACH. WILL CONT TO MONITOR.
[2019-05-19 05:03] LABS: HEMATOCRIT 31.6 % (37.0-47.0); HEMOGLOBIN 10.3 g/dl (12.0-16.0); MEAN CELL VOLUME 81.2 fL CALC (80.0-100.0); MEAN CORPUSCULAR HGB 26.5 pG CALC (26.0-32.0); MEAN CORPUSCULAR HGB CONC 32.6 g/L CALC (32.0-36.0); RED BLOOD COUNT 3.89 mill/uL (4.20-5.60); RED CELL DISTRI WIDTH 17.2 % (11.5-15.5)
[2019-05-19 05:23] LABS: ANION GAP 12 (6-22 (CALC)); BUN 19 mg/dL (7-17); BUN/CREATININE RATIO 20 (12-20 (CALC)); CARBON DIOXIDE 26 mmol/l (22-30); CHLORIDE 101 mmol/l (95-108); CREATININE 0.9 mg/dL (0.5-1.0); GFR > 60 ML/MIN (>=60 (CALC)); GFR FOR AFR.AMER. > 60 ML/MIN (>=60 (CALC)); POTASSIUM 3.9 mmol/l (3.5-5.1); SODIUM 135 mmol/l (137-146)
[2019-05-19 05:26] VITALS: BP 130/94
--- NOTE | 2019-05-19 05:28 | NUR ---
PATIENT INCONT OF MODERATE AMT OF LOOSE BROWN STOOL. PERINEAL AND PERALTA CATH CARE WAS DONE. LINENS WERE CHANGED. CLEANED UNDER PATIENT NAILS WITH SOAPY WATER AND ORANGE STICKS. CBI REMAINS IN PROGRESS DRAINING CRANBERRY URINE.AQUACEL FOAM DRESSING CHANGED DUE TO SOILAGE. TURNED AND REPOSITIONED. TELE MONITOR IN PLACE. SALINE LOCK TO LEFT FOREARM INTACT. SAFETY PRECAUTIONS REINFORCED. CALL LIGHT IN REACH. WILL CONT TO MONITOR.
[2019-05-19 07:30] VITALS: BP 144/104
--- NOTE | 2019-05-19 07:30 | NUR ---
ASSESSMENT IS COMPLETED: IV SITE IS FREE FROM REDNESS OR EDEMA. HR IS REG,PULSES ARE STRONG ON RADIAL, WEAK ON PEDAL , ABD IS SOFT WITH ACTIVE BS. PERALTA DRAINING CRANBERRY RED URINE WITH CBI. TELE MONITOR IN PLACE. CONTINUE TO OSEBRVE AND MONITOR.
[2019-05-19 11:03] VITALS: BP 126/94
--- NOTE | 2019-05-19 12:10 | NUR ---
PT IS RELAXING IN BED WITH NO DISTRESS NOTED IV SITE IS FREE FROM REDNESS OR EDEMA.
--- NOTE | 2019-05-19 14:30 | NUR ---
[PT TRANSPORTED TO HAVE CT SCAN VIA STRETCHER ACCOMPANIED BY STAFF WITH CBI FLUID
--- NOTE | 2019-05-19 15:25 | NUR ---
PT RETURNED FROM HAVING CT SCAN COMPLETED. VIA [facility]
--- NOTE | 2019-05-19 16:00 | NUR ---
PT IS C/O PAIN.STATES" I DIDN'T GET MY PAIN MEDICATIONS" PT WAS GIVEN PAIN MEDICATION AT [address] SCAN OF ABD.
[2019-05-19 16:09] VITALS: BP 117/85
--- NOTE | 2019-05-19 19:05 | NUR ---
REPORT RECEIVED FROM JONATHAN AMRTINS. PT RESTING IN BED. NO S/S OF DISTRESS AT THIS TIME. SAFETY PRECAUTIONS IN PLACE. WILL CONTINUE TO MONITOR.
[2019-05-19 19:30] VITALS: BP 116/83
--- NOTE | 2019-05-19 22:28 | NUR ---
PT RESTING IN BED. RESPIRATIONS EVEN AND UNLABORED ON RA. LUNGS SOUND CLEAR DIMINISHED. PEDAL PULSES WEAK. CBI IN PROGRESS. TELE IN PLACE. CALL LAUREN WITHIN REACH WILL CONTINUE TO MONITOR.
[2019-05-20 00:15] VITALS: BP 98/84
--- NOTE | 2019-05-20 00:46 | NUR ---
PT RESTING IN BED WITH EYES CLOSED. RESPIRATIONS EVEN AND UNLABORED ON RA. CBI IN PROGRESS. TELE IN PLACE. WILL CONTINUE TO MONITOR.
--- NOTE | 2019-05-20 03:45 | NUR ---
PT CALLING OUT FOR HELP. UPON ENTERING THE ROOM PT LAYING IN BED ASKING FOR COFFEE AND SOMETHING FOR HER PAIN. PT RATES PAIN 9/10, PT TO BE MEDICATED PER EMAR ORDERS. SAFETY PRECAUTIONS IN PLACE. WILL CONTINUE TO MONITOR.
[2019-05-20 03:50] VITALS: BP 121/81
[2019-05-20 04:59] LABS: HEMATOCRIT 33.3 % (37.0-47.0); HEMOGLOBIN 10.7 g/dl (12.0-16.0); MEAN CELL VOLUME 82.6 fL CALC (80.0-100.0); MEAN CORPUSCULAR HGB 26.6 pG CALC (26.0-32.0); MEAN CORPUSCULAR HGB CONC 32.1 g/L CALC (32.0-36.0); RED BLOOD COUNT 4.03 mill/uL (4.20-5.60); RED CELL DISTRI WIDTH 17.3 % (11.5-15.5)
[2019-05-20 05:20] LABS: ANION GAP 12 (6-22 (CALC)); BUN 20 mg/dL (7-17); BUN/CREATININE RATIO 22 (12-20 (CALC)); CARBON DIOXIDE 28 mmol/l (22-30); CHLORIDE 99 mmol/l (95-108); CREATININE 0.9 mg/dL (0.5-1.0); GFR > 60 ML/MIN (>=60 (CALC)); GFR FOR AFR.AMER. > 60 ML/MIN (>=60 (CALC)); POTASSIUM 3.8 mmol/l (3.5-5.1); SODIUM 135 mmol/l (137-146)
--- NOTE | 2019-05-20 07:00 | NUR ---
SHIFT CHANGE REPORT, PT SLEEPING, BREATHING EVEN AND NON-LABORED, TELE MONITOR IN PLACE, PERALTA CATHETER IN PLACE WITH CBI IN PROGRESS, DRAINAGE LIGHT SR RED, NO SIGN DISCOMFORT AT THIS TIME, CALL LAUREN IN REACH.
[2019-05-20 09:11] VITALS: BP 114/72
[2019-05-20 10:52] VITALS: BP 117/88
--- NOTE | 2019-05-20 11:22 | NUR ---
PT HAS BEEN LETHARGIC AND SLEEPING ALL AM, AROUSES TO TACTILE AND VERBAL STIMULI BUT DOES NOT STAY AWAKE, SHE STATES SHE IS TIRED, SHE IS CONFUSED AT THIS TIME AND INCOHERENT, DOES NOT ANSWER QUESTIONS APPROPRIATELY. SHE IS NOW AWAKE AND ASKING FOR COFFEE BUT MENTATION REMAINS SAME. HER SISTER CLAUDE IS HERE AT THE MOMENT VISITING, DR MAYORGA DISCUSSED PLAN OF CARE AFTER BOTH STAFF AND MD ATTEMPTED TO REACH NEXT OF KIN/POA SEVERAL TIMES SINCE THIS AM. WILL CONTINUE TO MONITOR.
--- NOTE | 2019-05-20 12:00 | NUR ---
PT AWAKE AT 1200, MORE ALERT BUT STILL INCOHERENT, C/O GENERALISED PAIN, SIGNIFICANT OTHER AND SISTER AT BEDSIDE, ALL NEEDS ADDRESSED.
[2019-05-20 15:35] VITALS: BP 107/63
--- NOTE | 2019-05-20 16:12 | NUR ---
SLEEPING AT THIS TIME, NO SIGN DISCOMFORT, CALL LAUREN IN REACH AND SIGNIFICANT OTHER AT BEDSIDE.
--- NOTE | 2019-05-20 18:11 | NUR ---
DR SANABRIA WAS CALLED AND INFORMED OF PT'S CONDITION AND SISTER'S REQUEST NOT TO CONTINUE WITH SURGERY IN AM.
--- NOTE | 2019-05-20 19:00 | NUR ---
REPORT RECEIVED FROM JIMMY GAMBLE. PT RESTING IN BED. CBI IN PROGRESS. NO S/S OF DISTRESS AT THIS TIME. BED ALARM ACTIVE FOR PT SAFETY. WILL CONTINUE TO MONITOR.
[2019-05-20 19:52] VITALS: BP 107/79
--- NOTE | 2019-05-20 20:01 | NUR ---
PT RESTING IN BED, WITH EYES CLOSED. RESPIRATIONS EVEN AND UNLABORED ON RA. PEDAL PULSES WEAK. TELE IN PLACE. CBI IN PROGRESS. #22 LW PATENT AND APPEARS HEALTHY. BED ALARM ACTIVE FOR PT SAFETY. WILL CONTINUE TO MONITOR.
--- NOTE | 2019-05-20 21:55 | NUR ---
PT FOUND WITH PERALTA BAG PULLED INTO BED, PERALTA STILL IN PLACE. PT CONFUSED. PT HAD LARGE BM. LINENS SOILED. PT GIVE A BED BATH AND LINENS CHANGED. PT REPOSITIONED AT THIS TIME. SAFETY PRECAUTION IN PLACE. WILL CONTINUE TO MONITOR.
[2019-05-21 00:38] VITALS: BP 115/82
--- NOTE | 2019-05-21 01:13 | NUR ---
PT RESTING IN BED. NO S/S OF DISTRESS AT THIS TIME. CBI IN PROGRESS. WILL CONTINUE TO MONITOR.
--- NOTE | 2019-05-21 04:25 | NUR ---
PT RESTING IN BED, RESPIRATIONS EVEN AND UNLABORED ON RA. NO S/S OF DISTRESS AT THIS TIME. CBI IN PROGRESS. WILL CONTINUE TO MONITOR.
[2019-05-21 04:30] VITALS: BP 117/86
--- NOTE | 2019-05-21 07:00 | NUR ---
PT REPORT RECIEVED FROM JIMMY MEDEROS. PT WATCHING TELEVISION. NO S/S OF DISTRESS. CALL LIGHT IN REACH. WILL CONTINUE TO MONITOR.
[2019-05-21 07:41] VITALS: BP 137/89
--- NOTE | 2019-05-21 07:41 | NUR ---
PT A/O X2 W/ CONFUSION. RESP EVEN AND UNLABORED. LUNGS CLEAR. BOWEL SOUNDS ACTIVE X4. STRONG RADIAL, WEAK PEDAL PULSES. #22 LW SL. FLUSHED AND PATENT. SITE APPEARS HEALTHY. REDNESS TO BUTTOCK NOTED. CBI IN PLACE; URINE RED. PT DENIES ANY PAIN OR NEEDS. POC DISCUSSED. SAFETY PRECAUTIONS IN PLACE. CALL LIGHT IN REACH. WILL CONTINUE TO MONITOR.
[2019-05-21 10:44] VITALS: BP 99/69
[2019-05-21] MEDS ORDERED: MORPHINE S20 MG/5 ML PO (11:08)
[2019-05-21] MEDS ORDERED: MS CONTIN30 MG PO (11:08)
--- NOTE | 2019-05-21 11:40 | NUR ---
D/C INSTRUCTIONS DISCUSSED W/ PT AND SISTER. BOTH STATE UNDERSTANDING. IV REMOVED; CATHETER INTACT. PT TO BE TRANSFERRED TO [facility]
--- NOTE | 2019-05-21 13:22 | NUR ---
Discharge instructions given. Patient verbalizes understanding of same. Discharged in stable condition via Medical Transport to *Other with *Other. All belongings sent with pt.
== END 2019-05-21 13:22 | disposition hospice, inpatient (51) | DRG 686 ==
LOC: ED 08:07 → ED-I 09:33 → ED 09:47 → MS2 09:48
PROVIDERS: Family Medicine; Nurse Practitioner Family; ADMIT Internal Medicine; ATTEND Internal Medicine
PROC: 0T9B70Z Drainage of Bladder with Drainage Device, Via Natural or Artificial Opening (ICD-10-PCS; principal; 2019-05-16)
PROC: 3E02340 Introduction of Influenza Vaccine into Muscle, Percutaneous Approach (ICD-10-PCS; 2019-05-16)
PROC: 3E0234Z Introduction of Serum, Toxoid and Vaccine into Muscle, Percutaneous Approach (ICD-10-PCS; 2019-05-16)
DX: C79.02 Secondary malignant neoplasm of left kidney and renal pelvis (principal); J15.1 Pneumonia due to Pseudomonas; N39.0 Urinary tract infection, site not specified; C34.90 Malignant neoplasm of unspecified part of unspecified bronchus or lung; C71.9 Malignant neoplasm of brain, unspecified; G93.40 Encephalopathy, unspecified; R04.2 Hemoptysis; C77.2 Secondary and unspecified malignant neoplasm of intra-abdominal lymph nodes; C78.7 Secondary malignant neoplasm of liver and intrahepatic bile duct; C79.51 Secondary malignant neoplasm of bone; C64.1 Malignant neoplasm of right kidney, except renal pelvis; C79.01 Secondary malignant neoplasm of right kidney and renal pelvis; I10 Essential (primary) hypertension; E83.52 Hypercalcemia; F41.9 Anxiety disorder, unspecified; F32.9 Major depressive disorder, single episode, unspecified; R31.0 Gross hematuria; E86.0 Dehydration; F17.200 Nicotine dependence, unspecified, uncomplicated; B96.20 Unspecified Escherichia coli [E. coli] as the cause of diseases classified elsewhere; Z51.5 Encounter for palliative care; Z66 Do not resuscitate; Z23 Encounter for immunization; Z79.891 Long term (current) use of opiate analgesic
CPT/HCPCS: Q9967